=== PATIENT | female | born 2000 | race Hispanic/Latino ===

== ENCOUNTER 2024-06-05 20:47 | Emergency (ER) | payer BC, SELFPAY ==
[2024-06-05 20:47] VITALS: BP 99/70; PULSE 84; RESP 6; TEMP 36.8; O2SAT 100; BMI 26.6
--- NOTE | 2024-06-05 21:02 | CT_ITS ---
EXAM: CT brain without IV contrast CLINICAL HISTORY: Headaches COMPARISON: None TECHNIQUE: Multiple contiguous axial images through the brain were obtained without the administration of intravenous contrast. Two-dimensional coronal and sagittal reformatted images were reconstructed. Low-dose imaging technique was utilized. FINDINGS: No evidence of acute intracranial hemorrhage, midline shift or mass effect. No definite CT evidence of acute territorial cortical infarction. No hydrocephalus. Cerebral volume is age-appropriate. Calvarium is intact. Paranasal sinuses and mastoid air cells are clear. CT/Brain/Head without Contrast IMPRESSION: No acute intracranial abnormality. Reading Location: [facility]
--- NOTE | 2024-06-05 21:03 | EX.ED.VIS.HA ---
HPI History of Present Illness Chief Complaint: Headache Informant: patient Onset/Context/Timing Onset: Today Context: Gradual Timing: Continuous Current Severity: Moderate Maximum Severity: Moderate Associated Symptoms/Injury Associated Symptoms: Positive for Nausea, Vomiting and Photophobia; Negative for Fever, Sore Throat, Sinus Pressure, Numbness, Tingling, Preceding Aura, Visual Changes, Blurred Vision or Visual Loss Injury - DOLAN: Negative for Direct Trauma, Fall or Assault Narrative Narrative: 23-year-old female no seen past medical history. Both her sister and mom of the history of migraine headaches. No family history of aneurysms. She is traveling today from [place]. They were driving down and she started getting a headache over the last several hours. Took Tylenol at 830 and previously took Motrin at 1 PM. She has had no significant relief. She has had nausea vomiting. Photophobia. No recent illness. No recent fever. No recent head trauma. No sinus congestion. She has never had a headache like this before. She is on no blood thinners. She denies any trouble using her arms or legs. Prior similar symptoms: No Recent Illness/Hospitalization: No PFSH PFSH Medical History no medical history no medical history Home Medications ?Medication ?Instructions ?Recorded ?Last Taken ?Type sumatriptan succinate 25 mg tablet See Rx Instructions PO .COMPLEX 06/05/24 Unknown Rx (Imitrex) #10 tabs Allergy/AdvReac Type Severity Reaction Status Date / Time No Known Allergies Allergy Verified 06/05/24 20:48 Surgical History no surgical history no surgical history Social History Smoking Status: Never smoker ROS ROS ED ROS Narrative Headache today. Nausea vomiting today. Constitutional Constitutional ED: Denies chills or fever(s) Eyes Eyes: Denies blurry vision ENT ENT ED: Denies ear pain Cardiovascular Cardiovascular: Denies chest pain Respiratory/Chest Respiratory/Chest: Denies cough or dyspnea Gastrointestinal Gastrointestinal: Reports nausea and vomiting; Denies abdominal pain, diarrhea or melena Genitourinary Genitourinary ED: Denies dysuria or hematuria Musculoskeletal Musculoskeletal: Denies arthralgias Integumentary Denies abscess Neurologic Neurologic: Reports headache(s); Denies paresthesias or weakness Psychiatric Psychiatric: Denies anxiety or depression Endocrine Endocrinology: Denies polydipsia or polyphagia Hematologic/Lymphatic Hematologic/Lymphatic: Denies easy bleeding, easy bruising or lymphadenopathy Allergic/Immunologic Allergic/Immunologic ED: Denies mouth swelling, tongue swelling or urticaria EXAM Physical Exam Narrative Exam Narrative: 20-year-old female vital signs stable afebrile. Initial pressure 99/70. She does not look septic or toxic. Sister at bedside. Sister is interventional nurse. H EENT exam pupils round reactive light. Extra motions are intact. No facial droop. Normal speech. No signs of trauma to her face or head. Nontender. No hematoma. No bruising or laceration. No frontal or maxillary sinus tenderness. Neck nontender no meningismus. Lungs clear to auscultation bilaterally. Heart regular rhythm rate about 80 no murmur. Chest wall and ribs nontender. Abdomen soft nontender. No peritoneal signs. Moving all 4 extremities. 5 out of 5 parallel computing software engineer strength. Dorsi plantarflexion intact. Fingertip to nose [id number] within normal limits. Extremities are nontender no edema. Neurologically she is awake alert. Answering questions and following commands. NIH 0. Const Vital Signs: 06/05/24 20:47 Temperature 98.2 F Temperature Source Oral Pulse Rate 84 Respiratory Rate 6 L Blood Pressure 99/70 Blood Pressure Mean 79 Pulse Ox 100 Oxygen Delivery Method Room Air Positive well nourished and well developed; Negative for cachectic, contractures or unkempt General Appearance ED: well developed and NAD; Negative for unkempt, cachectic, contractures, cyanotic, diaphoretic or pallor Nutritional Appearance: Negative for cachectic HEENT Reports normocephalic and moist mucous membranes atraumatic; Negative for trauma, tenderness, temporal artery tenderness or vesicular rash Face and Sinus: Negative for sinus tenderness Eyes PERRL and EOMs intact bilaterally General Eye ED: Negative for pale conjunctiva or scleral icterus Neck no lymphadenopathy, supple, no meningeal signs and no JVD General: Negative for tenderness Resp normal respiratory effort and clear to auscultation bilaterally Cardio regular rate, regular rhythm, S1 normal heart sound, S2 normal heart sound and no murmurs Rate: Negative for bradycardia or tachycardic Rhythm: Negative for abnormal rhythm GI non-tender and non-distended Auscultation: normoactive bowel sounds Palpation: soft; Negative for firm, tender or guarding Back/Spine no CVA tenderness General Back: Negative for CVA tenderness Cervical Spine: Negative for cervical spine tenderness Thoracic Spine / Upper Back: Negative for thoracic spinal tenderness Lumbar Spine / Lower Back: Negative for lumbar spinal tenderness Extremity normal to inspection and full ROM General Extremety ED: Negative for edema or tenderness General Extremity: Negative for edema Neuro oriented x3 and CN's II-XII intact bilaterally Neuro Narrative: Normal neurologic exam. NIH 0. Bilateral parallel computing software engineer strength. Bilateral dorsi plantarflexion. Fingertip to nose and heel lovell within normal limits. Sensorium / Orientation: awake, alert, oriented to person, oriented to place and oriented to time; Negative for orientation impaired, lethargic or stuporous Coordination / Balance: [id number] test normal and [id number] test normal Speech: speech normal Motor Exam: strength 5/5 throughout Psych mental status grossly normal Appearance: Negative for unkempt Mood & Affect: Negative for depressed, anxious or tearful Skin General Skin Exam: elasticity normal and turgor normal; Negative for jaundice or pallor Lesions: no lesions Rashes: no rashes MDM MDM MDM Narrative Medical decision making narrative: 23-year-old female severe headache. Typically does not get headaches. Family history of migraines in both her mom and sister. Normal neurologic exam clinically I think is most likely a migraine. Should be treated with IV fluids, Toradol, Benadryl and Zofran. I will obtain a CT of her brain since this is the worst headache she is ever had and typically does not get headaches. There is no history of trauma or infection. She has no sinus tenderness. Repeat exam at 10:10 PM patient doing well. Headache nearly resolved. Repeat neurologic exam normal. She will be discharged home. Prescription for Imitrex as needed for headaches. I believe this is her first migraine. History & Record Review Discussion w/independent historian: Patient Additional record(s) reviewed:: No prior records Radiography Diagnostic Testing: Clinical Impression(s) from Imaging Studies Brain CT 06/05/24 21:02 IMPRESSION: No acute intracranial abnormality. Reading Location: [facility] CT of the brain as read by the radiologist reviewed by myself shows no acute abnormality. Discharge Plan Triage Chief Complaint: Headache ED Provider: Wicho White Dx/Rx/DC Orders Clinical Impression: Headache, Migraine Instructions: ED, Migraine (Classical) Prescriptions: New sumatriptan succinate [Imitrex] 25 mg tablet See Rx Instructions .ROUTE .COMPLEX Qty: 10 0RF Rx Instructions: take 1 tab at onset of headache; if no relief may repeat 1 tab after at least 2 hrs; max = 4 tabs/24 hr Referrals: Renay Murcia MD [Med Staff - Active Staff] - 1-2 Days if not improving Activity Restrictions/Additional Instructions: Plenty of fluids and rest. Motrin and/or Tylenol for headaches. If you get a recurrent headache I wrote you for a medication called Imitrex. You can try that it typically works well for migraines. Follow-up your primary care provider as needed. Return to the emergency department if you are feeling worse, develop a fever or not acting right. Print Language: Azerbaijani Disposition Disposition: Home, Self Care
[2024-06-05] MEDS: Ondansetron 4 MG/2 ML Vial IV (21:34)
[2024-06-05] MEDS: DiphenhydrAMINE 50 MG/ML Syringe 25 MG IV (21:35)
[2024-06-05] MEDS: Ketorolac 30 MG/ML Syringe IV (21:35)
[2024-06-05] MEDS: 0.9% Normal Saline (1000mL) 1,000 ML 1000 ML IV (21:35)
[2024-06-05 22:28] VITALS: BP 112/68; PULSE 76; RESP 18; TEMP 36.8; O2SAT 100
== END 2024-06-05 22:32 | disposition home or self-care (01) ==
PROVIDERS: Emergency Provider Emergency Medicine; Visit Provider Emergency Medicine
DX: G43.909 Migraine, unspecified, not intractable, without status migrainosus (principal)
CPT/HCPCS: 70450; 96361; 96374; 96375; 99282; A4216; J2405